=== PATIENT | male | born 1950 | race Caucasian/White ===

== ENCOUNTER → 2019-01-21 12:47 | Outpatient (CLI) | payer OTHER, SELFPAY ==
--- NOTE | 2019-01-21 | DI.MRI.S_ITS ---
PROCEDURE: MR LUMBAR SPINE WO CON INDICATIONS: LOW BACK PAIN,BILATERAL HIP PAIN TECHNIQUE: Noncontrast sagittal T1 spin echo and T2 fast echo, sagittal STIR, axial T1 and T2 fast spin echo through the lumbar spine. In cases with scoliosis, additional coronal T2 fast spin echo may be performed. COMPARISON: [facility] [place], [place], XR LUMBAR SPINE 2 OR 3 VIEWS, 11/07/2018, 13:58. FINDINGS: Image quality: Excellent. Alignment and Curvature: There is normal bony alignment. Bone Marrow: Mild reactive endplate changes noted adjacent to the L2-L3, L3-L4 and L4-L5 discs. No acute vertebral body compression fractures. Spinal Cord: Conus medullaris terminates at the L1 level. Visualized cord demonstrates normal signal and size. Paraspinous Soft Tissues: No paravertebral masses. L1-L2: Slight loss of disc signal. Mild bilateral facet hypertrophy. No central stenosis. No neural foraminal narrowing. No neural impingement. L2-L3: Loss of disc signal. Mild, diffuse disc bulge. Mild bilateral facet hypertrophy. Mild narrowing of the central canal. Mild bilateral neural foraminal narrowing. No neural impingement. Fissures noted in the anterior annulus. L3-L4: Loss of disc signal and slight loss of disc height. Mild, diffuse disc bulge. Mild facet and mild ligamentum flavum hypertrophy. Mild narrowing of the central canal. Mild bilateral neural foraminal narrowing. Fissures noted in the posterior and anterior annulus. L4-L5: Loss of disc signal and slight loss of disc height. Mild, diffuse disc bulge. Moderate bilateral facet hypertrophy. Mild narrowing of the central canal. Moderate bilateral neural foraminal narrowing. No neural impingement. Fissures noted in the antrum posterior annulus. L5-S1: Loss of disc signal. Minimal, diffuse disc bulge. Moderate bilateral facet hypertrophy. No central stenosis. Moderate right and mild left neural foraminal narrowing. No neural impingement. Fissures noted in the anterior annulus. IMPRESSION: 1. Multilevel degenerative disc disease. 2. Multilevel facet arthropathy. 3. Mild L2-L3, L3-L4 and L4-L5 central canal narrowing. 4. Moderate bilateral L4-L5 neural foraminal narrowing. Moderate right and mild left L5-S1 neural foraminal narrowing. Mild bilateral L2-L3 and L3-L4 neural foraminal narrowing. 5. No neural impingement. 6. L2-L3, L3 on L4, L4-L5 and L5-S1 disc annulus fissures. Dictated by: Shonda Yang MD, PhD on 01/21/2019 at 16:58 Approved by: Shonda Yang MD, PhD on 01/21/2019 at 17:17
--- NOTE | 2019-01-21 | DI.MRI.S_ITS ---
PROCEDURE: MR HIP RT WO CON INDICATIONS: LOW BACK PAIN,BILATERAL HIP PAIN TECHNIQUE: Noncontrast coronal T1 spin echo and STIR through the bony pelvis. Coronal and axial T2 fast spin echo with fat saturation, sagittal T1 spin echo, and oblique axial T2 fast spin echo with fat saturation through the hip. COMPARISON: None. FINDINGS: Image quality: Diagnostic Bones and joints: No acute fracture, dislocation, suspicious osseous lesion, or evidence of avascular necrosis is evident involving the right hip. Moderate degenerative changes of the right hip are present with irregularity and heterogeneity of the superior right hip hyaline articular cartilage. Degenerative marrow edema/degenerative cystic changes noted involving the central aspect of the femoral head. Moderate-sized developing marginal osteophytes of the femoral head are present. There probably are marginal osteophytes of the acetabulum, as well. There is a small hip effusion. No definite intra-articular joint bodies are appreciated. The alpha angle of the right proximal femur measures approximately 55-60?. The remainder of the included osseous structures of the pelvis demonstrate no acute fractures or suspicious osseous lesions. Mild to moderate degenerative changes of the lumbosacral spine, pubis symphysis, and left hip are present. Labrum: Evaluation of the right acetabular is difficult without intra-articular contrast. However, there is heterogeneity identified along the superior aspect of the labrum, suggesting chronic labral degeneration. No large vertebral cysts or detached labral tears are appreciated. Tendons and ligaments: The ligamentum teres appears to be attenuated and probably partially torn. The distal iliopsoas tendons and proximal hamstrings tendons appear to be within normal limits. There is slight increased signal identified involving the distal gluteus medius and gluteus minimus tendons without significant tearing. No significant fluid is contained within the greater trochanteric bursa. Soft tissues: Visualized muscles demonstrate normal bulk and internal signal. Quadratus femoris muscle demonstrates no internal edema to suggest ischiofemoral impingement. The proximal sciatic neurovascular bundle appears normal adjacent to the hamstring tendons. No free pelvic fluid. The prostate is enlarged. Mild bladder wall thickening is evident. Distal colonic diverticulosis is noted. Imaged bowel loops are nondilated. IMPRESSION: 1. Moderate degenerative changes of the right hip. 2. 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 3. Small right hip effusion. 4. Mild distal right gluteus medius and gluteus minimus tendinopathy. 5. Enlarged prostate. Dictated by: Sanchez Bess M.D. on 01/21/2019 at 16:21 Approved by: Sanchez Bess M.D. on 01/21/2019 at 16:27
--- NOTE | 2019-01-21 | DI.MRI.S_ITS ---
PROCEDURE: MR HIP LT WO CON INDICATIONS: LOW BACK PAIN,BILATERAL HIP PAIN TECHNIQUE: Noncontrast coronal T1 spin echo and STIR through the bony pelvis. Coronal and axial T2 fast spin echo with fat saturation, sagittal T1 spin echo, and oblique axial T2 fast spin echo with fat saturation through the hip. COMPARISON: None. FINDINGS: Image quality: Diagnostic. Bones and joints: No acute fracture, dislocation, or suspicious osseous lesion is identified involving the left hip. No evidence of avascular necrosis is present. The alpha angle of the left femoral head is slightly increased at approximately 55-60?. No significant left hip effusion is identified. Mild to moderate degenerative changes of the left hip are present. The remainder of the image osseous structures of the pelvis demonstrate no acute fractures or suspicious osseous lesions. There are [id number] degenerative changes involving the lumbosacral spine, right hip, and pubis symphysis. Labrum: The acetabular labrum is difficult to evaluate without intra-articular contrast. There is heterogeneity along the anterosuperior aspect of the labrum, suggesting chronic labral degeneration. No detached labral fragment or large para labral cysts are appreciated. Tendons and ligaments: The ligamentum teres appears attenuated, but is intact, probably related to chronic ligamentous degeneration. The distal iliopsoas and proximal hamstrings tendons appear to be within normal limits. There is moderate increased signal noted involving the distal left gluteus medius tendon and mild increased signal involving the distal gluteus medius tendon. No significant tearing is appreciated. No significant fluid is contained within the greater trochanteric bursa. Soft tissues: Visualized muscles demonstrate normal bulk and internal signal. Quadratus femoris muscle demonstrates no internal edema to suggest ischiofemoral impingement. The proximal sciatic neurovascular bundle appears normal adjacent to the hamstring tendons. No free pelvic fluid. The prostate gland is noted to be enlarged. Mild wall thickening of the urinary bladder could potentially be related to chronic bladder outlet obstruction versus much less likely cystitis. Distal colonic diverticulosis is evident. Otherwise, the imaged bowel loops are nondilated. IMPRESSION: 1. Mild to moderate degenerative changes of the left hip. 2. Probable superior left acetabular labral degeneration without discrete labral tear evident. 3. Mild to moderate distal left gluteus medius and gluteus minimus tendinopathy. 4. Enlarged prostate. 5. Distal colonic diverticulosis. Dictated by: Sanchez Bess M.D. on 01/21/2019 at 16:27 Approved by: Sanchez Bess M.D. on 01/21/2019 at 16:31
== END ==
PROVIDERS: PCP Family Medicine; Visit Provider Orthopaedic Surgery
DX: M51.36 Other intervertebral disc degeneration, lumbar region (principal); M48.061 Spinal stenosis, lumbar region without neurogenic claudication; M51.37 Other intervertebral disc degeneration, lumbosacral region; M48.07 Spinal stenosis, lumbosacral region; M47.816 Spondylosis without myelopathy or radiculopathy, lumbar region; M47.817 Spondylosis without myelopathy or radiculopathy, lumbosacral region; Q05.7 Lumbar spina bifida without hydrocephalus; M16.0 Bilateral primary osteoarthritis of hip; M25.451 Effusion, right hip; M76.01 Gluteal tendinitis, right hip; N40.0 Benign prostatic hyperplasia without lower urinary tract symptoms; M76.02 Gluteal tendinitis, left hip; K57.30 Diverticulosis of large intestine without perforation or abscess without bleeding; M54.5 Low back pain; M25.552 Pain in left hip; M25.551 Pain in right hip
CPT/HCPCS: 72148; 73721